=== PATIENT | male | born 1950 | race Caucasian/White ===

== ENCOUNTER → 2016-10-04 | Outpatient (CLI) | payer MEDICARE ==
[2016-10-04 08:18] LABS: CH 29.7; CHCM 31.8; HCT 45.9 % (39.0-53.0); HDW 2.21; HGB 14.9 gm/dL (13.0-17.5); MCH 30.5 pg (25.0-35.0); MCHC 32.4 g/dL (31.0-37.0); MCV 94.1 fL (80.0-100.0); Mean Platelet Volume 7.6; RBC 4.88 m/uL (4.30-5.90); RDW 13.5 % (11.5-15.5)
[2016-10-04 08:29] LABS: ALT 23 U/L (21-72); AST 17 U/L (17-59); Alkaline Phosphatase 79 U/L (38-126); Anion Gap 11 mmol/L; Blood Urea Nitrogen 23 mg/dL (9-20); Carbon Dioxide 24 mmol/L (22-30); Chloride 110 mmol/L (98-107); Glucose 137 mg/dL (74-99); Non-African American GFR(MDRD) >60 (>60 ml/min/1.73 sqM); Potassium 4.1 mmol/L (3.5-5.1); Sodium 145 mmol/L (137-145); Total Bilirubin 0.3 mg/dL (0.2-1.3); Total Protein 6.4 g/dL (6.3-8.2)
[2016-10-05 11:07] LABS: Protein C (Activity) 102 % (70 - 130)
[2016-10-05 11:56] LABS: Hexagonal Phase Neutralization Negative (Negative)
[2016-10-06 16:02] LABS: Mis test requested (Blood) PLASMINOGEN ACTIVITY
[2016-10-07 12:03] LABS: Free Protein S Antigen 107 % (57 - 171)
== END | disposition home or self-care (01) ==
LOC: LABWHC1 07:20
PROVIDERS: ATTEND Family Medicine
DX: I82.409 Acute embolism and thrombosis of unspecified deep veins of unspecified lower extremity (principal)
CPT/HCPCS: 36415; 80053; 81241; 81291; 83090; 85027; 85300; 85303; 85306; 85420; 85613; 85730; 86147

== ENCOUNTER 2016-11-02 10:33 | Emergency (ER) | payer MEDICARE ==
--- NOTE | 2016-11-02 10:58 | ED ---
General Adult HPI - General Chief complaint: Extremity Injury, Lower Stated complaint: right ankle pain Time Seen by Provider: 11/02/16 10:46 Source: patient, RN notes reviewed, old records reviewed Mode of arrival: ambulatory Limitations: no limitations - History of Present Illness Initial comments: This is a 66-year-old male to the ER for evaluation. Patient presents here today for evaluation of right leg pain right ankle pain. Patient has recent diagnosis of DVT on throttle. He did have trauma to right ankle pinning it against a chair. States pain is increased redness has increased since that event. - Related Data Home Medications Medication Instructions Recorded Confirmed Acetaminophen Tab [Tylenol Tab] 650 mg PO Q4H PRN 11/02/16 11/02/16 Aspirin EC [Ecotrin Low Dose] 81 mg PO DAILY 11/02/16 11/02/16 Atenolol [Tenormin] 50 mg PO DAILY 11/02/16 11/02/16 Atorvastatin [Lipitor] 40 mg PO DAILY 11/02/16 11/02/16 Levothyroxine Sodium [Synthroid] 50 mcg PO DAILY 11/02/16 11/02/16 OXcarbazepine [Oxtellar Xr] 600 mg PO DAILY 11/02/16 11/02/16 Rivaroxaban [Xarelto] 20 mg PO DAILY 11/02/16 11/02/16 Allergies Allergy/AdvReac Type Severity Reaction Status Date / Time No Known Allergies Allergy Verified 11/02/16 11:06 Review of Systems ROS Statement: Those systems with pertinent positive or pertinent negative responses have been documented in the HPI. ROS Other: All systems not noted in ROS Statement are negative. Past Medical History Past Medical History: CVA/TIA, Hyperlipidemia Additional Past Medical History / Comment(s): APS syndrome, stroke in 2007. History of Any Multi-Drug Resistant Organisms: None Reported Past Surgical History: Appendectomy, Tonsillectomy Past Psychological History: No Psychological Hx Reported Smoking Status: Current every day smoker Past Alcohol Use History: Rare Past Drug Use History: None Reported General Exam Limitations: no limitations General appearance: alert, in no apparent distress Head exam: Present: atraumatic, normocephalic, normal inspection Eye exam: Present: normal appearance, PERRL, EOMI. Absent: scleral icterus, conjunctival injection, periorbital swelling ENT exam: Present: normal exam, mucous membranes moist Neck exam: Present: normal inspection. Absent: tenderness, meningismus, lymphadenopathy Respiratory exam: Present: normal lung sounds bilaterally. Absent: respiratory distress, wheezes, rales, rhonchi, stridor Cardiovascular Exam: Present: regular rate, normal rhythm, normal heart sounds. Absent: systolic murmur, diastolic murmur, rubs, gallop, clicks GI/Abdominal exam: Present: soft, normal bowel sounds. Absent: distended, tenderness, guarding, rebound, rigid Extremities exam: Present: normal inspection, full ROM, normal capillary refill. Absent: tenderness, pedal edema, joint swelling, calf tenderness Back exam: Present: normal inspection Neurological exam: Present: alert, oriented X3, CN II-XII intact Psychiatric exam: Present: normal affect, normal mood Skin exam: Present: warm, dry, intact, normal color. Absent: rash Course Vital Signs 11/02/16 10:39 Temperature 97.6 F Pulse Rate 75 Respiratory 18 Rate Blood Pressure 172/82 O2 Sat by Pulse 96 Oximetry - Reevaluation(s) Reevaluation #1: 11/02/16 13:03 Discussed with patient at length disease process, negative ultrasound. Questions answered Medical Decision Making - Medical Decision Making 66 ER with right leg trauma, contusion to right ankle. Note DVT found in right leg, x-ray negative. Patient can be discharged home - Radiology Data Radiology results: report reviewed (RIGHT LOWER EXTREMITY NEGATIVE FOR DVT, X- RAY RIGHT ANKLE NEGATIVE FOR FRACTURE), image reviewed Disposition Clinical Impression: Contusion of ankle, right, Antiphospholipid syndrome Disposition: HOME SELF-CARE Condition: Good Instructions: Contusion in Adults (ED), Hypercoagulation (ED) Referrals: Natalie Poole DO [Primary Care Provider] - 1-2 days
--- NOTE | 2016-11-02 11:48 | XR ---
EXAMINATION TYPE: XR ankle complete RT DATE OF EXAM: 11/02/2016 CLINICAL HISTORY: Patient hit his right ankle on a chair one week ago with subsequent pain and swelli ng TECHNIQUE: Frontal, lateral and oblique images of the right ankle are obtained. COMPARISON: Right FINDINGS: There is no acute fracture/dislocation evident in the right ankle. The ankle mortise appe ars within normal limits. Soft tissue swelling over the lateral malleolus is evident. IMPRESSION: Soft tissue swelling over the lateral malleolus without fracture or dislocation of the ri ght ankle..
--- NOTE | 2016-11-02 12:15 | US ---
EXAMINATION TYPE: US venous doppler duplex LE RT DATE OF EXAM: 11/02/2016 12:10 PM COMPARISON: NONE CLINICAL HISTORY: Pain. Pt states right leg swelling/ currently on blood thinners, pt states prior DV T right leg SIDE PERFORMED: Right TECHNIQUE: The lower extremity deep venous system is examined utilizing real time linear array sonog babatunde with graded compression, doppler sonography and color-flow sonography. VESSELS IMAGED: External Iliac Vein (EIV) Common Femoral Vein Deep Femoral Vein Greater Saphenous Vein * Femoral Vein Popliteal Vein Small Saphenous Vein * Proximal Calf Veins (* superficial vessels) Right Leg: Negative for DVT Grayscale, color doppler, spectral doppler imaging performed of the deep veins of the lower extremiti es. There is normal flow, compressibility, vascular waveforms. IMPRESSION: No evidence of deep venous stenosis within the right lower extremity.
[2016-11-02 13:14] VITALS: BP 146/85; PULSE 70; RESP 16; TEMP 98.4
== END 2016-11-02 13:10 | disposition home or self-care (01) ==
LOC: EC 10:33
DX: S90.01XA Contusion of right ankle, initial encounter (principal); D68.61 Antiphospholipid syndrome; E78.5 Hyperlipidemia, unspecified; F17.200 Nicotine dependence, unspecified, uncomplicated; Z86.73 Personal history of transient ischemic attack (TIA), and cerebral infarction without residual deficits; Z79.01 Long term (current) use of anticoagulants; Z79.82 Long term (current) use of aspirin; Z79.899 Other long term (current) drug therapy; W22.03XA Walked into furniture, initial encounter
CPT/HCPCS: 99284

== ENCOUNTER → 2018-01-03 | Day surgery (SDC) | payer MEDICARE ==
[2017-12-29 11:48] VITALS: BMI 29.0
[~2018-01-03] MED LIST: GLUCAGON 1 MG/ML VIAL ONE; HYDROmorphone 1 MG/ML 1 ML SYRINGE IVP PRN; IOPAMIDOL-300 CONTRAST 30 ML VIAL (ORAL USE) PO PRN; LACTATED RINGERS 1,000 ML IV SCH; LIDOCAINE 1% 20 ML VIAL (10MG/ML) FOR IV START INTRADERMA ONE; PROPOFOL 10 MG/ML 20 ML VIAL IV ONE
[2018-01-03 09:39] VITALS: RESP 16; TEMP 97.8
--- NOTE | 2018-01-03 10:28 | P.GSHP ---
History of Present Illness H&P Date: 01/03/18 Chief Complaint: GI bleed This is a 67-year-old male who presents today for colonoscopy. Patient had issues with rectal bleeding. 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 History of Any Multi-Drug Resistant Organisms: None Reported Past Surgical History: Appendectomy, Tonsillectomy Additional Past Surgical History / Comment(s): Cataracts; Colonoscopy Past Anesthesia/Blood Transfusion Reactions: No Reported Reaction Smoking Status: Current every day smoker - Past Family History Mother Family Medical History: No Reported History Medications and Allergies Home Medications Medication Instructions Recorded Confirmed Type Aspirin EC [Ecotrin Low Dose] 81 mg PO DAILY 11/02/16 01/03/18 History Atenolol [Tenormin] 50 mg PO DAILY 11/02/16 01/03/18 History Atorvastatin [Lipitor] 40 mg PO DAILY 11/02/16 01/03/18 History Levothyroxine Sodium [Synthroid] 50 mcg PO DAILY 11/02/16 01/03/18 History Rivaroxaban [Xarelto] 20 mg PO DAILY 11/02/16 01/03/18 History Allergies Allergy/AdvReac Type Severity Reaction Status Date / Time No Known Allergies Allergy Verified 12/29/17 11:43 Surgical - Exam Vital Signs Temp Pulse Resp BP Pulse Ox 97.8 F 93 16 153/89 96 01/03/18 09:37 01/03/18 09:37 01/03/18 09:37 01/03/18 09:37 01/03/18 09:37 - General well developed, no distress - Eyes PERRL - ENT normal pinna - Neck no masses - Respiratory normal expansion - Cardiovascular Rhythm: regular - Abdomen Abdomen: soft, non tender Assessment and Plan Assessment: GI bleed, we'll perform colonoscopy.
[2018-01-03 11:35] VITALS: BP 135/79; PULSE 68
--- NOTE | 2018-01-03 14:40 | CT ---
EXAMINATION TYPE: CT abdomen pelvis w con DATE OF EXAM: 01/03/2018 COMPARISON: None HISTORY: Rectal bleeding. Failed colonoscopy. CT DLP: 1085.3 mGycm Automated exposure control for dose reduction was used. TECHNIQUE: Helical acquisition of images from the lung bases through the pelvis have been completed. CONTRAST: Performed with Oral Contrast and with IV Contrast, patient injected with 100 mL of Isovue 300. FINDINGS: There is some breathing motion on the exam. This may limit sensitivity. LUNG BASES: No significant abnormality is appreciated. AORTA: Infrarenal abdominal aortic aneurysm measures 4.4 cm, there is luminal plaque, mural calcific ation present. Common iliac arteries also show aneurysm on the right measuring 2.8 cm, 2.2 cm on the left.. LIVER/GB: No significant abnormality is appreciated. PANCREAS: No significant abnormality is seen. SPLEEN: No significant abnormality is seen. ADRENALS: No significant abnormality is seen. KIDNEYS: Cortical cysts are associated with both kidneys. Nonobstructive calculus present at the lowe r pole the left kidney measures approximately 7 8 mm. REPRODUCTIVE ORGANS: There are some punctate calcifications associated with the prostate BOWEL: Abnormal thickening in the sigmoid colon, there is diverticular change present. Difficult to exclude mucosal abnormality. The could be an underlying colitis. No evident bowel obstruction.. FREE AIR: No Free Air visible. ASCITES: None visible. PELVIC ADENOPATHY: None visualized. RETROPERITONEAL ADENOPATHY: No Retroperitoneal Adenopathy visible. URINARY BLADDER: No significant abnormality is seen. The bladder is contracted. OSSEOUS STRUCTURES: Bilateral spondylolysis at L5, anterolisthesis grade 2 is present of L5 on S1. IMPRESSION: DIVERTICULOSIS, CORRELATE TO EXCLUDE COLITIS, MUCOSAL ABNORMALITY. INFRARENAL ABDOMINAL AORTIC ANEURY SM. COMMON ILIAC ARTERY ANEURYSMS. NONOBSTRUCTIVE LEFT NEPHROLITHIASIS. ADDITIONAL FINDINGS ABOVE.
--- NOTE | 2018-02-18 12:59 | P.OP ---
Date of Procedure: 01/03/18 Preoperative Diagnosis: GI bleed Postoperative Diagnosis: Colonic polyp at 20 cm Procedure(s) Performed: Colonoscopy Anesthesia: MAC Surgeon: Ricardo Rodriguez Pathology: other (Colon polyp) Condition: stable Disposition: PACU Description of Procedure: The patient's placed on the endoscopy table in the lateral position. He received IV sedation. Digital rectal exam was performed which revealed no abnormalities. The prostate was symmetric without nodules. The flexible colonoscope was then placed patient anus and passed throughout the entire colon. The ileocecal valve was visualized. The cecum, ascending and transverse colon appeared normal. The descending colon appeared normal. In the sigmoid colon at the 20 cm marybeth there was a pedunculated polyp and this was removed with the snare. The scope was then brought back the rectum and this appeared normal. The scope was withdrawn for patient. There is no evidence of any GI bleed. It was thought that the previous rectal bleeding was due to the polyp.
== END ==
LOC: ORWHC2ENDO 08:34
PROVIDERS: ATTEND Surgery
DX: D12.5 Benign neoplasm of sigmoid colon (principal); K57.30 Diverticulosis of large intestine without perforation or abscess without bleeding; I71.4 Abdominal aortic aneurysm, without rupture; I72.3 Aneurysm of iliac artery; N20.0 Calculus of kidney; E78.5 Hyperlipidemia, unspecified; E07.9 Disorder of thyroid, unspecified; D68.61 Antiphospholipid syndrome; F17.200 Nicotine dependence, unspecified, uncomplicated; Z79.82 Long term (current) use of aspirin; Z79.890 Hormone replacement therapy; Z79.899 Other long term (current) drug therapy; Z79.01 Long term (current) use of anticoagulants; Z86.73 Personal history of transient ischemic attack (TIA), and cerebral infarction without residual deficits
CPT/HCPCS: 88305; 82565; 84520; 74177; 36415; 45385; J1610; J2704; Q9967

== ENCOUNTER 2019-08-08 09:56 | Emergency (ER) | payer MEDICARE ==
[2019-08-08 10:12] VITALS: TEMP 98.3
--- NOTE | 2019-08-08 10:31 | ED ---
General Adult HPI - General Chief complaint: Extremity Problem,Nontraumatic Stated complaint: Poss blood clot Time Seen by Provider: 08/08/19 10:19 Source: patient, RN notes reviewed, old records reviewed Mode of arrival: wheelchair Limitations: physical limitation - History of Present Illness Initial comments: 69-year-old male patient presents ED chief complaint of unilateral leg pain and swelling on the right side beginning on Monday. Patient doesn't history of prior DVT and was anticoagulated until to which she stopped himself because he began having blood in his urine and that resulted after he stopped xaralto number of years ago. Denies any chest pain or shortness of breath. Was seen by his primary care provider today who recommended come to hospital for an ultrasound. Systemic: Pt denies fatigue, fever/chills, rash. Pt denies weakness, night sweats, weight loss. Neuro: Pt denies headache, visual disturbances, syncope or pre-syncope. HEENT: Pt denies ocular discharge or irritation, otalgia, rhinorrhea, pharyngitis or notable lymphadenopathy. Cardiopulmonary: Pt denies chest pain, SOB, heart palpitations, dyspnea on exertion. Abdominal/GI: Pt denies abdominal pain, n/v/d. : Pt denies dysuria, burning w/ urination, frequency/urgency. Denies new onset urinary or bowel incontinence. MSK: Pt denies myalgia, loss of strength or function in extremities. Neuro: Pt denies new onset weakness, paresthesias. - Related Data Home Medications Medication Instructions Recorded Confirmed Aspirin EC [Ecotrin Low Dose] 81 mg PO DAILY 11/02/16 01/03/18 Atenolol [Tenormin] 50 mg PO DAILY 11/02/16 01/03/18 Atorvastatin [Lipitor] 40 mg PO DAILY 11/02/16 01/03/18 Levothyroxine Sodium [Synthroid] 50 mcg PO DAILY 11/02/16 01/03/18 Rivaroxaban [Xarelto] 20 mg PO DAILY 11/02/16 01/03/18 Previous Rx's Medication Instructions Recorded Apixaban [Eliquis] 5 mg PO DIRECTED #42 tab 08/08/19 Allergies Allergy/AdvReac Type Severity Reaction Status Date / Time No Known Allergies Allergy Verified 08/08/19 10:11 Review of Systems ROS Statement: Those systems with pertinent positive or pertinent negative responses have been documented in the HPI. ROS Other: All systems not noted in ROS Statement are negative. 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 History of Any Multi-Drug Resistant Organisms: None Reported Past Surgical History: Appendectomy, Tonsillectomy Additional Past Surgical History / Comment(s): Cataracts; Colonoscopy Past Anesthesia/Blood Transfusion Reactions: No Reported Reaction Past Psychological History: No Psychological Hx Reported Smoking Status: Current every day smoker Past Alcohol Use History: None Reported Past Drug Use History: None Reported - Past Family History Mother Family Medical History: No Reported History General Exam - General Exam Comments Initial Comments: Constitutional: NAD, AOX3, Pt has pleasant affect. HEENT: NC/AT, trachea midline, neck supple. External ears appear normal, without discharge. Mucous membranes moist. EOM intact. There is no scleral icterus. No pallor noted. Cardiopulmonary: RRR, no murmurs, rubs or gallops, no JVD noted. Lungs CTAB in anterior and posterior [place]. No peripheral edema. Abdominal exam: Abdomen soft and non-distended. Abdomen non-tender to palpation in all 4 quadrants. Bowel sounds active in LLQ. No hepatosplenomegaly. No e cchymosis Neuro: CN II-XII grossly intact. No nuchal rigidity. No raccon eyes, no cardona sign, no hemotympanum. No cervical spinal tenderness. MSK: Right-sided posterior calf tenderness, homans sign positive right-sided. Mild amount of posterior right hamstring tenderness as well as well as poplit eal. Posterior tibialis and radial pulse +2 bilaterally. Sensation intact in upper and lower extremities. Full active ROM in upper and lower extremities Limitations: physical limitation Course Vital Signs 08/08/19 10:09 Temperature 98.3 F Pulse Rate 68 Respiratory 18 Rate Blood Pressure 153/82 O2 Sat by Pulse 95 Oximetry Medical Decision Making - Medical Decision Making 69-year-old male patient presents ED chief complaint of unilateral leg pain and swelling on the right side beginning on Monday. Patient doesn't history of prior DVT and was anticoagulated until to which she stopped himself because he began having blood in his urine and that resulted after he stopped xaralto number of years ago. Denies any chest pain or shortness of breath. Was seen by his primary care provider today who recommended come to hospital for an ultrasound. Patient vital signs are stable. Physical exam displayed posterior right calf and posterior hamstring tenderness. No external skin changes. Neurovascularly intact. Laboratory investigations are non-impressive. Ultrasound of right lower extremity is positive for deep venous to boluses in the right external iliac vein with additional superficial venous thrombosis in the popliteal region. Patient will be initiated on eliquis. It was offered admission to hospital as I discussed with patient that this is a higher risk for DVT. Patient declines this. Patient to follow-up with his primary care prov ider was given strict return precautions. Case discussed with Dr. Osei. - Lab Data Result diagrams: 08/08/19 10:16 08/08/19 10:16 Lab Results 08/08/19 08/08/19 08/08/19 Range/Units 10:16 10:16 10:16 WBC 9.0 (3.8-10.6) k/uL RBC 5.21 (4.30-5.90) m/uL Hgb 15.3 (13.0-17.5) gm/dL Hct 48.7 (39.0-53.0) % MCV 93.5 (80.0-100.0) fL MCH 29.3 (25.0-35.0) pg MCHC 31.4 (31.0-37.0) g/dL RDW 13.2 (11.5-15.5) % Plt Count 179 (150-450) k/uL Neutrophils % 74 % Lymphocytes % 17 % Monocytes % 6 % Eosinophils % 1 % Basophils % 0 % Neutrophils # 6.7 (1.3-7.7) k/uL Lymphocytes # 1.6 (1.0-4.8) k/uL Monocytes # 0.5 (0-1.0) k/uL Eosinophils # 0.1 (0-0.7) k/uL Basophils # 0.0 (0-0.2) k/uL PT 9.9 (9.0-12.0) sec INR 0.9 (<1.2) APTT 24.4 (22.0-30.0) sec Sodium 137 (137-145) mmol/L Potassium 4.9 (3.5-5.1) mmol/L Chloride 107 (98-107) mmol/L Carbon Dioxide 23 (22-30) mmol/L Anion Gap 7 mmol/L BUN 22 H (9-20) mg/dL Creatinine 1.22 (0.66-1.25) mg/dL Est GFR (CKD-EPI)AfAm 70 (>60 ml/min/1.73 sqM) Est GFR (CKD-EPI)NonAf 60 (>60 ml/min/1.73 sqM) Glucose 134 H (74-99) mg/dL Calcium 9.2 (8.4-10.2) mg/dL Total Bilirubin 0.8 (0.2-1.3) mg/dL AST 22 (17-59) U/L ALT 15 (4-49) U/L Alkaline Phosphatase 75 (38-126) U/L Total Protein 7.1 (6.3-8.2) g/dL Albumin 4.3 (3.5-5.0) g/dL Disposition Clinical Impression: Deep vein thrombosis (DVT) of lower extremity Disposition: HOME SELF-CARE Condition: Stable Instructions (If sedation given, give patient instructions): Deep Vein Thrombosis (ED) Additional Instructions: Follow-up with primary care provider tomorrow. Take eliquis as directed. You were given your first dose in the emergency room, you are due for one more dose today. Your kidney function is slightly worse than your previous labs on file. Follow up with her primary care provider for this. Also your blood sugar is 134, also have this repeated by primary care provider. Return immediately to emergency room if symptoms worsen in any way. If any chest pain or shortness of breath develops return immediately to emergency room. Prescriptions: Apixaban [Eliquis] 5 mg PO DIRECTED #42 tab Is patient prescribed a controlled substance at d/c from ED?: No Referrals: Mauri Hayes MD [Primary Care Provider] - 1-2 days
[2019-08-08 11:15] LABS: Basophils % (A) 0 %; Eosinophils # (A) 0.1 k/uL (0-0.7); Eosinophils % (A) 1 %; HCT 48.7 % (39.0-53.0); HGB 15.3 gm/dL (13.0-17.5); Lymphocytes # (A) 1.6 k/uL (1.0-4.8); Lymphocytes % (A) 17 %; MCH 29.3 pg (25.0-35.0); MCHC 31.4 g/dL (31.0-37.0); MCV 93.5 fL (80.0-100.0); Monocytes # (A) 0.5 k/uL (0-1.0); Monocytes % (A) 6 %; Neutrophils # (A) 6.7 k/uL (1.3-7.7); Neutrophils % (A) 74 %; Platelet Count 179 k/uL (150-450); RBC 5.21 m/uL (4.30-5.90); RDW 13.2 % (11.5-15.5)
--- NOTE | 2019-08-08 11:21 | US ---
EXAMINATION TYPE: US venous doppler duplex LE RT DATE OF EXAM: 08/08/2019 11:09 AM COMPARISON: NONE CLINICAL HISTORY: unilateral leg pain. edema and pain right leg SIDE PERFORMED: right TECHNIQUE: The lower extremity deep venous system is examined utilizing real time linear array sonog babatunde with graded compression, doppler sonography and color-flow sonography. VESSELS IMAGED: External Iliac Vein (EIV) Common Femoral Vein Deep Femoral Vein Greater Saphenous Vein * Femoral Vein Popliteal Vein Small Saphenous Vein * Proximal Calf Veins (* superficial vessels) Right Leg: Positive for DVT, incomplete compression and no flow right EIV. Superficial thrombus note d right popliteal fossa IMPRESSION: Exam is positive for deep venous thrombosis in the right external iliac vein with additi onal superficial venous thrombosis in the popliteal region (deep popliteal vein is patent).
[2019-08-08 11:22] LABS: Albumin 4.3 g/dL (3.5-5.0); Calcium 9.2 mg/dL (8.4-10.2); Potassium 4.9 mmol/L (3.5-5.1); Total Bilirubin 0.8 mg/dL (0.2-1.3); Total Protein 7.1 g/dL (6.3-8.2)
[2019-08-08] MEDS ORDERED: APIXABAN 5 MG TAB PO STA (11:38)
[2019-08-08 11:50] LABS: INR 0.9 (<1.2); Partial Thromboplastin Time 24.4 sec (22.0-30.0); Prothrombin Time 9.9 sec (9.0-12.0)
[2019-08-08 12:28] VITALS: BP 135/79; PULSE 86; RESP 16
== END 2019-08-08 12:28 | disposition home or self-care (01) ==
LOC: EC 09:56
DX: I82.421 Acute embolism and thrombosis of right iliac vein (principal); I82.431 Acute embolism and thrombosis of right popliteal vein; E78.5 Hyperlipidemia, unspecified; E07.9 Disorder of thyroid, unspecified; F17.200 Nicotine dependence, unspecified, uncomplicated; Z79.01 Long term (current) use of anticoagulants; Z79.890 Hormone replacement therapy; Z79.82 Long term (current) use of aspirin; Z79.899 Other long term (current) drug therapy; Z86.73 Personal history of transient ischemic attack (TIA), and cerebral infarction without residual deficits
CPT/HCPCS: 36415; 80053; 85025; 85610; 85730; 99284

== ENCOUNTER → 2020-01-03 | Outpatient (CLI) | payer MEDICARE ==
[2020-01-03 11:05] LABS: HCT 48.5 % (39.0-53.0); HGB 15.7 gm/dL (13.0-17.5); MCH 31.1 pg (25.0-35.0); MCHC 32.3 g/dL (31.0-37.0); MCV 96.2 fL (80.0-100.0); Mean Platelet Volume 8.4; Platelet Count 177 k/uL (150-450); RBC 5.04 m/uL (4.30-5.90); RDW 13.2 % (11.5-15.5); WBC 7.5 k/uL (3.8-10.6)
--- NOTE | 2020-01-03 11:11 | XR ---
EXAMINATION TYPE: XR chest 2V DATE OF EXAM: 01/03/2020 COMPARISON: NONE HISTORY: Presurgical study. TECHNIQUE: Frontal and lateral views of the chest are obtained. FINDINGS: There is no focal air space opacity, pleural effusion, or pneumothorax seen. The cardiac silhouette size is within normal limits. The osseous structures are intact. IMPRESSION: No acute cardiopulmonary process.
[2020-01-03 11:29] LABS: INR 0.9 (<1.2); Partial Thromboplastin Time 25.9 sec (22.0-30.0); Prothrombin Time 9.7 sec (9.0-12.0)
[2020-01-03 11:40] LABS: Appearance,Urine Clear (Clear); Bilirubin,Urine Negative (Negative); Blood,Urine Moderate (Negative); Color,Urine Yellow; Glucose,Urine (UA) Negative (Negative); Ketones,Urine Negative (Negative); Leukocyte Esterase,Urine Negative (Negative); Mucus,Urine Rare /hpf; Nitrite,Urine Negative (Negative); Protein,Urine Trace (Negative); RBC,Urine 6 /hpf (0-5); Specific Gravity,Urine 1.024 (1.001-1.035); Urobilinogen,Urine <2.0 mg/dL (<2.0); WBC,Urine 1 /hpf (0-5)
[2020-01-03 15:44] LABS: Anion Gap 10.6 mmol/L (4.00-12.00); Calcium 9.4 mg/dL (8.7-10.3); Carbon Dioxide 20.4 mmol/L (21.6-31.8); Non-African American GFR(CKD) 50.9 (60.0-200.0); Potassium 4.7 mmol/L (3.5-5.5)
== END | disposition home or self-care (01) ==
LOC: LABWHC1 10:12
PROVIDERS: ATTEND Surgery Vascular Surgery
DX: I65.23 Occlusion and stenosis of bilateral carotid arteries (principal); Z01.818 Encounter for other preprocedural examination; Z20.828 Contact with and (suspected) exposure to other viral communicable diseases
CPT/HCPCS: 80048; 85027; 85610; 85730; 81001; 87086; 71046; 93005; 36415; U0003

== ENCOUNTER 2020-01-21 12:05 | Emergency (ER) | payer MEDICARE ==
[2020-01-21] MEDS ORDERED: atenoloL 25 MG TAB PO STA ×2 (12:29→15:10)
--- NOTE | 2020-01-21 12:36 | ED ---
General Adult HPI - General Chief complaint: Recheck/Abnormal Lab/Rx Stated complaint: High Blood Pressure Time Seen by Provider: 01/21/20 12:17 Source: patient, family, RN notes reviewed Mode of arrival: wheelchair Limitations: no limitations - History of Present Illness Initial comments: Patient is a pleasant 70-year-old male presenting to the emergency Department with reported hypertension. Patient states he feels fine and has no complaints. Patient did take his atenolol this morning. Patient did have carotid endarterectomy done 1 week ago. Patient has no complaints regarding that. patient has had some mild headaches over the past few days, minimal at this time. No weakness or confusion or speech problems. Blood pressure from primary care physician was 212 systolic. Unclear diastolic.patient does not normally check his blood pressure. Patient does have history of chronic hypertension. - Related Data Home Medications Medication Instructions Recorded Confirmed Atorvastatin [Lipitor] 40 mg PO DAILY 11/02/16 01/21/20 Levothyroxine Sodium [Synthroid] 50 mcg PO DAILY 11/02/16 01/21/20 atenoloL [Tenormin] 50 mg PO DAILY 11/02/16 01/21/20 Apixaban [Eliquis] 5 mg PO BID 01/21/20 01/21/20 Allergies Allergy/AdvReac Type Severity Reaction Status Date / Time No Known Allergies Allergy Verified 01/21/20 13:18 Review of Systems ROS Statement: Those systems with pertinent positive or pertinent negative responses have been documented in the HPI. ROS Other: All systems not noted in ROS Statement are negative. Constitutional: Denies: fever Eyes: Denies: eye pain ENT: Denies: ear pain Respiratory: Denies: cough, dyspnea Cardiovascular: Denies: chest pain Endocrine: Denies: fatigue Gastrointestinal: Denies: abdominal pain Genitourinary: Denies: dysuria Musculoskeletal: Denies: back pain Skin: Denies: rash Neurological: Reports: as per HPI. 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 History of Any Multi-Drug Resistant Organisms: None Reported Past Surgical History: Appendectomy, Tonsillectomy Additional Past Surgical History / Comment(s): Cataracts; Colonoscopy Past Anesthesia/Blood Transfusion Reactions: No Reported Reaction Past Psychological History: No Psychological Hx Reported Smoking Status: Current every day smoker Past Alcohol Use History: None Reported Past Drug Use History: None Reported - Past Family History Mother Family Medical History: No Reported History General Exam Limitations: no limitations General appearance: alert, in no apparent distress Head exam: Present: normocephalic Eye exam: Present: normal appearance, PERRL, EOMI. Absent: nystagmus ENT exam: Present: normal oropharynx Neck exam: Present: other (right anterior neck with incision consistent with recent carotid endarterectomy, clean and dry and intact.) Respiratory exam: Present: normal lung sounds bilaterally Cardiovascular Exam: Present: regular rate, normal rhythm Expanded Peripheral pulses: 2+: Radial (R), Radial (L), Posterior Tibialis (R), Posterior Tibialis (L) GI/Abdominal exam: Present: soft. Absent: tenderness Extremities exam: Present: normal inspection Neurological exam: Present: alert, CN II-XII intact. Absent: motor sensory deficit Expanded Neurological exam: Present: protecting the airway Patient oriented to: Present: person, place, time Speech: Present: fluid speech Cranial nerves: EOM's Intact: Normal, Facial Sensation: Normal Sensory exam: Upper Extremity Light Touch: Normal, Lower Extremity Light Touch: Normal Motor strength exam: RUE: 5, LUE: 5, RLE: 5, LLE: 5 Eye Response: (4) open spontaneously Motor Response: (6) obeys commands Verbal Response: (5) oriented Psychiatric exam: Present: normal affect, normal mood Skin exam: Present: normal color Course Vital Signs 01/21/20 01/21/20 01/21/20 12:12 12:48 13:15 Temperature 98.8 F Pulse Rate 70 64 Respiratory 18 18 Rate Blood Pressure 193/96 174/89 192/97 O2 Sat by Pulse 96 97 Oximetry 01/21/20 01/21/20 13:30 13:59 Temperature Pulse Rate 62 Respiratory 18 Rate Blood Pressure 152/77 143/83 O2 Sat by Pulse 95 Oximetry EKG Findings - EKG Comments: EKG Findings:: sinus rhythm at 64. First-degree AV block ME of 258. QRS 94. QT 410. QTc 422. Normal axis. Normal QRS. No acute ST change. Medical Decision Making - Medical Decision Making patient reevaluated and resting comfortably in bed. Blood pressure improved. Patient and family updated on results and need for follow-up. - Lab Data Result diagrams: 01/21/20 12:56 01/21/20 12:56 Lab Results 01/21/20 01/21/20 01/21/20 Range/Units 12:56 12:56 12:56 WBC 7.8 (3.8-10.6) k/uL RBC 5.01 (4.30-5.90) m/uL Hgb 15.2 (13.0-17.5) gm/dL Hct 47.2 (39.0-53.0) % MCV 94.3 (80.0-100.0) fL MCH 30.3 (25.0-35.0) pg MCHC 32.2 (31.0-37.0) g/dL RDW 13.3 (11.5-15.5) % Plt Count 203 (150-450) k/uL MPV 7.8 Neutrophils % 66 % Lymphocytes % 26 % Monocytes % 4 % Eosinophils % 1 % Basophils % 1 % Neutrophils # 5.1 (1.3-7.7) k/uL Lymphocytes # 2.0 (1.0-4.8) k/uL Monocytes # 0.3 (0-1.0) k/uL Eosinophils # 0.1 (0-0.7) k/uL Basophils # 0.1 (0-0.2) k/uL Sodium 141 (137-145) mmol/L Potassium 4.6 (3.5-5.1) mmol/L Chloride 107 (98-107) mmol/L Carbon Dioxide 28 (22-30) mmol/L Anion Gap 6 mmol/L BUN 17 (9-20) mg/dL Creatinine 1.10 (0.66-1.25) mg/dL Est GFR (CKD-EPI)AfAm 78 (>60 ml/min/1.73 sqM) Est GFR (CKD-EPI)NonAf 68 (>60 ml/min/1.73 sqM) Glucose 119 H (74-99) mg/dL Calcium 9.4 (8.4-10.2) mg/dL Total Bilirubin 0.5 (0.2-1.3) mg/dL AST 33 (17-59) U/L ALT 36 (4-49) U/L Alkaline Phosphatase 75 (38-126) U/L Total Protein 6.8 (6.3-8.2) g/dL Albumin 4.1 (3.5-5.0) g/dL Urine Color Light Yellow Urine Appearance Clear (Clear) Urine pH 7.0 (5.0-8.0) Ur Specific [place] 1.013 (1.001-1.035) Urine Protein Negative (Negative) Urine Glucose (UA) Negative (Negative) Urine Ketones Negative (Negative) Urine Blood Trace H (Negative) Urine Nitrite Negative (Negative) Urine Bilirubin Negative (Negative) Urine Urobilinogen <2.0 (<2.0) mg/dL Ur Leukocyte Esterase Negative (Negative) Urine RBC 5 (0-5) /hpf Urine WBC <1 (0-5) /hpf Urine Mucus Rare H (None) /hpf - Radiology Data Radiology results: image reviewed (chest x-ray shows no acute process) Disposition Clinical Impression: Hypertension Disposition: HOME SELF-CARE Condition: Stable Instructions (If sedation given, give patient instructions): Hypertension (ED) Additional Instructions: please follow-up with primary care physician in the next day or 2 for recheck. Obtain a blood pressure monitor and check blood pressure frequently. If blood pressure is high, you may take an extra one half pill of your atenolol daily. Return for uncontrolled blood pressure, weakness or chest pain, worsening symptoms or other concerns. Is patient prescribed a controlled substance at d/c from ED?: No Referrals: Mauri Hayes MD [Primary Care Provider] - 1-2 days Time of Disposition: 14:32
[2020-01-21 13:17] LABS: Basophils # (A) 0.1 k/uL (0-0.2); Basophils % (A) 1 %; Eosinophils # (A) 0.1 k/uL (0-0.7); Eosinophils % (A) 1 %; HCT 47.2 % (39.0-53.0); HGB 15.2 gm/dL (13.0-17.5); Lymphocytes % (A) 26 %; MCH 30.3 pg (25.0-35.0); MCHC 32.2 g/dL (31.0-37.0); MCV 94.3 fL (80.0-100.0); Mean Platelet Volume 7.8; Monocytes # (A) 0.3 k/uL (0-1.0); Monocytes % (A) 4 %; Neutrophils # (A) 5.1 k/uL (1.3-7.7); Neutrophils % (A) 66 %; Platelet Count 203 k/uL (150-450); RBC 5.01 m/uL (4.30-5.90); RDW 13.3 % (11.5-15.5); WBC 7.8 k/uL (3.8-10.6)
[2020-01-21 13:33] LABS: Albumin 4.1 g/dL (3.5-5.0); Calcium 9.4 mg/dL (8.4-10.2); Potassium 4.6 mmol/L (3.5-5.1); Total Bilirubin 0.5 mg/dL (0.2-1.3); Total Protein 6.8 g/dL (6.3-8.2)
[2020-01-21 13:40] LABS: Appearance,Urine Clear (Clear); Bilirubin,Urine Negative (Negative); Blood,Urine Trace (Negative); Color,Urine Light Yellow; Glucose,Urine (UA) Negative (Negative); Ketones,Urine Negative (Negative); Leukocyte Esterase,Urine Negative (Negative); Mucus,Urine Rare /hpf; Nitrite,Urine Negative (Negative); Protein,Urine Negative (Negative); RBC,Urine 5 /hpf (0-5); Specific Gravity,Urine 1.013 (1.001-1.035); Urobilinogen,Urine <2.0 mg/dL (<2.0); WBC,Urine <1 /hpf (0-5)
--- NOTE | 2020-01-21 13:49 | XR ---
EXAMINATION TYPE: XR chest 2V DATE OF EXAM: 01/21/2020 COMPARISON: 01/03/2020 INDICATION: Hypertension TECHNIQUE: Frontal and lateral views of the chest are obtained. FINDINGS: The heart size is normal. The pulmonary vasculature is normal. The lungs are clear. IMPRESSION: 1. No acute pulmonary process.
[2020-01-21 15:14] VITALS: TEMP 98.3
[2020-01-21 15:17] VITALS: RESP 18
[2020-01-21 15:49] VITALS: BP 169/92; PULSE 61
== END 2020-01-21 15:49 | disposition home or self-care (01) ==
LOC: EC 12:05
DX: I10 Essential (primary) hypertension (principal); E07.9 Disorder of thyroid, unspecified; E78.5 Hyperlipidemia, unspecified; F17.200 Nicotine dependence, unspecified, uncomplicated; Z79.899 Other long term (current) drug therapy; Z79.890 Hormone replacement therapy; Z79.01 Long term (current) use of anticoagulants; Z86.73 Personal history of transient ischemic attack (TIA), and cerebral infarction without residual deficits
CPT/HCPCS: 36415; 71046; 80053; 81001; 85025; 93005; 99284

== ENCOUNTER 2020-01-21 17:02 | Observation (INO) | payer MEDICARE ==
[2020-01-21 17:10] LABS: Glucose,Whole Blood 146 mg/dL (75-99)
--- NOTE | 2020-01-21 17:11 | ED ---
General Adult HPI - General Stated complaint: Unresponsive Time Seen by Provider: 01/21/20 17:07 Source: patient, EMS, RN notes reviewed Mode of arrival: EMS Limitations: no limitations - History of Present Illness Initial comments: Patient is a pleasant 70-year-old male presenting to the emergency department following a syncopal episode. Patient was in the emergency department earlier today with high blood pressure. Patient reportedly was found in his car unresponsive. No seizure activity witnessed. EMS states patient was unresponsive however has improved some. EMS states patient is significantly improved since arrival here in emergency department. Patient states he feels fine at this time and has no complaints. No headache or chest pain or dyspnea. No weakness. Patient denies confusion.patient did have a right-sided carotid endarterectomy one week ago. - Related Data Home Medications Medication Instructions Recorded Confirmed Atorvastatin [Lipitor] 40 mg PO DAILY 11/02/16 01/21/20 Levothyroxine Sodium [Synthroid] 50 mcg PO DAILY 11/02/16 01/21/20 atenoloL [Tenormin] 50 mg PO DAILY 11/02/16 01/21/20 Apixaban [Eliquis] 5 mg PO BID 01/21/20 01/21/20 Allergies Allergy/AdvReac Type Severity Reaction Status Date / Time No Known Allergies Allergy Verified 01/21/20 18:23 Review of Systems ROS Statement: Those systems with pertinent positive or pertinent negative responses have been documented in the HPI. ROS Other: All systems not noted in ROS Statement are negative. 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 History of Any Multi-Drug Resistant Organisms: None Reported Past Surgical History: Appendectomy, Tonsillectomy Additional Past Surgical History / Comment(s): Cataracts; Colonoscopy Past Anesthesia/Blood Transfusion Reactions: No Reported Reaction Past Psychological History: No Psychological Hx Reported Smoking Status: Current every day smoker Past Alcohol Use History: None Reported Past Drug Use History: None Reported - Past Family History Mother Family Medical History: No Reported History General Exam Limitations: no limitations General appearance: alert Head exam: Present: atraumatic, normocephalic Eye exam: Present: normal appearance, PERRL, EOMI. Absent: nystagmus ENT exam: Present: normal oropharynx Neck exam: Present: other (right-sided neck incision clean and dry and intact) Respiratory exam: Present: normal lung sounds bilaterally Cardiovascular Exam: Present: regular rate, normal rhythm GI/Abdominal exam: Present: soft. Absent: tenderness Extremities exam: Present: normal inspection Neurological exam: Present: alert, oriented X3, CN II-XII intact. Absent: motor sensory deficit Expanded Neurological exam: Present: protecting the airway Patient oriented to: Present: person, place, time Speech: Present: fluid speech Cranial nerves: EOM's Intact: Normal, Facial Sensation: Normal Sensory exam: Upper Extremity Light Touch: Normal, Lower Extremity Light Touch: Normal Motor strength exam: RUE: 5, LUE: 5, RLE: 5, LLE: 5 Eye Response: (4) open spontaneously Motor Response: (6) obeys commands Verbal Response: (5) oriented Psychiatric exam: Present: normal affect, normal mood Skin exam: Present: normal color Course Vital Signs 01/21/20 01/21/20 01/21/20 17:04 17:25 17:30 Temperature 97.6 F Pulse Rate 74 Respiratory 18 16 Rate Blood Pressure 94/56 94/54 94/54 O2 Sat by Pulse Oximetry 01/21/20 01/21/20 18:08 19:10 Temperature Pulse Rate 67 70 Respiratory 18 18 Rate Blood Pressure 130/64 151/80 O2 Sat by Pulse 92 L 97 Oximetry - Reevaluation(s) Reevaluation #1: 01/21/20 17:43 further information was obtained from the states patient was confused prior to becoming unresponsive. Case was discussed with Dr. ray who would like patient to have CTA done. He is aware the patient was not activated. 01/21/20 18:24 patient was reevaluated and resting comfortably in bed, still symptom-free. Patient states his CTA was done at [facility] in [place] by Dr. العراقي. EKG Findings - EKG Comments: EKG Findings:: sinus rhythm at 73. First-degree AV block with [place] of 268. QRS 92. QT 424. QTC 467. Normal axis. Normal QRS. Nonspecific ST-T. Medical Decision Making - Medical Decision Making patient reevaluated several times. Patient and family updated on results and plan. Case was discussed in detail with Dr. Esquivel, who will admit covering for Dr. Hayes. - Lab Data Result diagrams: 01/21/20 17:16 01/21/20 17:16 Lab Results 01/21/20 01/21/20 01/21/20 Range/Units 17:09 17:16 17:16 WBC 9.1 (3.8-10.6) k/uL RBC 4.64 (4.30-5.90) m/uL Hgb 14.3 (13.0-17.5) gm/dL Hct 44.8 (39.0-53.0) % MCV 96.6 (80.0-100.0) fL MCH 30.9 (25.0-35.0) pg MCHC 31.9 (31.0-37.0) g/dL RDW 13.2 (11.5-15.5) % Plt Count 218 (150-450) k/uL MPV 8.1 Neutrophils % 60 % Lymphocytes % 32 % Monocytes % 4 % Eosinophils % 1 % Basophils % 1 % Neutrophils # 5.5 (1.3-7.7) k/uL Lymphocytes # 3.0 (1.0-4.8) k/uL Monocytes # 0.4 (0-1.0) k/uL Eosinophils # 0.1 (0-0.7) k/uL Basophils # 0.1 (0-0.2) k/uL PT 9.9 (9.0-12.0) sec INR 0.9 (<1.2) APTT 22.1 (22.0-30.0) sec Sodium (137-145) mmol/L Potassium (3.5-5.1) mmol/L Chloride (98-107) mmol/L Carbon Dioxide (22-30) mmol/L Anion Gap mmol/L BUN (9-20) mg/dL Creatinine (0.66-1.25) mg/dL Est GFR (CKD-EPI)AfAm (>60 ml/min/1.73 sqM) Est GFR (CKD-EPI)NonAf (>60 ml/min/1.73 sqM) Glucose (74-99) mg/dL POC Glucose (mg/dL) 146 H (75-99) mg/dL POC Glu Head Charger ID Peyton Dejesus Calcium (8.4-10.2) mg/dL Magnesium (1.6-2.3) mg/dL Total Bilirubin (0.2-1.3) mg/dL AST (17-59) U/L ALT (4-49) U/L Alkaline Phosphatase (38-126) U/L Troponin I (0.000-0.034) ng/mL Total Protein (6.3-8.2) g/dL Albumin (3.5-5.0) g/dL 01/21/20 01/21/20 Range/Units 17:16 17:16 WBC (3.8-10.6) k/uL RBC (4.30-5.90) m/uL Hgb (13.0-17.5) gm/dL Hct (39.0-53.0) % MCV (80.0-100.0) fL MCH (25.0-35.0) pg MCHC (31.0-37.0) g/dL RDW (11.5-15.5) % Plt Count (150-450) k/uL MPV Neutrophils % % Lymphocytes % % Monocytes % % Eosinophils % % Basophils % % Neutrophils # (1.3-7.7) k/uL Lymphocytes # (1.0-4.8) k/uL Monocytes # (0-1.0) k/uL Eosinophils # (0-0.7) k/uL Basophils # (0-0.2) k/uL PT (9.0-12.0) sec INR (<1.2) APTT (22.0-30.0) sec Sodium 139 (137-145) mmol/L Potassium 4.6 (3.5-5.1) mmol/L Chloride 106 (98-107) mmol/L Carbon Dioxide 16 L (22-30) mmol/L Anion Gap 17 mmol/L BUN 17 (9-20) mg/dL Creatinine 1.42 H (0.66-1.25) mg/dL Est GFR (CKD-EPI)AfAm 58 (>60 ml/min/1.73 sqM) Est GFR (CKD-EPI)NonAf 50 (>60 ml/min/1.73 sqM) Glucose 159 H (74-99) mg/dL POC Glucose (mg/dL) (75-99) mg/dL POC Glu Head Charger ID Calcium 9.3 (8.4-10.2) mg/dL Magnesium 2.1 (1.6-2.3) mg/dL Total Bilirubin 0.6 (0.2-1.3) mg/dL AST 35 (17-59) U/L ALT 37 (4-49) U/L Alkaline Phosphatase 68 (38-126) U/L Troponin I <0.012 (0.000-0.034) ng/mL Total Protein 6.6 (6.3-8.2) g/dL Albumin 4.1 (3.5-5.0) g/dL - Radiology Data Radiology results: report reviewed (CT angios shows no acute abnormality. Mode rate left proximal ICA stenosis. Computed tomography scan of the brain shows no acute abnormality.), image reviewed (chest x-ray shows no acute process) Disposition Clinical Impression: Syncope Disposition: ADMITTED IP TO THIS HOSP Is patient prescribed a controlled substance at d/c from ED?: No Referrals: Mauri Hayes MD [Primary Care Provider] - 1-2 days Decision Time: 20:09
[2020-01-21] MEDS ORDERED: SODIUM CHLORIDE 0.9% 500 ML 500 ML IV STA (17:17)
[2020-01-21 17:30] LABS: Basophils # (A) 0.1 k/uL (0-0.2); Basophils % (A) 1 %; Eosinophils # (A) 0.1 k/uL (0-0.7); Eosinophils % (A) 1 %; HCT 44.8 % (39.0-53.0); HGB 14.3 gm/dL (13.0-17.5); Lymphocytes % (A) 32 %; MCH 30.9 pg (25.0-35.0); MCHC 31.9 g/dL (31.0-37.0); MCV 96.6 fL (80.0-100.0); Mean Platelet Volume 8.1; Monocytes # (A) 0.4 k/uL (0-1.0); Monocytes % (A) 4 %; Neutrophils # (A) 5.5 k/uL (1.3-7.7); Neutrophils % (A) 60 %; Platelet Count 218 k/uL (150-450); RBC 4.64 m/uL (4.30-5.90); RDW 13.2 % (11.5-15.5); WBC 9.1 k/uL (3.8-10.6)
[2020-01-21 17:40] LABS: Albumin 4.1 g/dL (3.5-5.0); Calcium 9.3 mg/dL (8.4-10.2); Magnesium 2.1 mg/dL (1.6-2.3); Potassium 4.6 mmol/L (3.5-5.1); Total Bilirubin 0.6 mg/dL (0.2-1.3); Total Protein 6.6 g/dL (6.3-8.2)
--- NOTE | 2020-01-21 17:47 | CT ---
EXAMINATION TYPE: CT brain wo con DATE OF EXAM: 01/21/2020 COMPARISON: None available. HISTORY: Syncope CT DLP: 1157.4 mGycm Automated exposure control for dose reduction was used. FINDINGS: There is no acute intracranial hemorrhage, mass effect, midline shift or hydrocephalus. The rock-whit e matter is grossly maintained. The paranasal sinuses and mastoid air cells are adequately aerated. N o calvarial fracture. IMPRESSION: NO ACUTE INTRACRANIAL ABNORMALITY.
[2020-01-21 17:53] LABS: INR 0.9 (<1.2); Partial Thromboplastin Time 22.1 sec (22.0-30.0); Prothrombin Time 9.9 sec (9.0-12.0)
--- NOTE | 2020-01-21 18:17 | XR ---
EXAMINATION TYPE: XR chest 2V DATE OF EXAM: 01/21/2020 COMPARISON: Earlier same day. HISTORY: Unresponsive. TECHNIQUE: Frontal and lateral views of the chest are obtained. FINDINGS: There is no focal air space opacity, pleural effusion, or pneumothorax seen. The cardiac silhouette size is within normal limits. The osseous structures are intact. IMPRESSION: No acute cardiopulmonary process.
--- NOTE | 2020-01-21 19:46 | CT ---
EXAMINATION TYPE: CT angio head neck DATE OF EXAM: 01/21/2020 HISTORY: cva COMPARISON: Same-day head CT. CT DLP: 474.5 mGycm. Automated Exposure Control for Dose Reduction was Utilized. TECHNIQUE: CTA scan of the head and neck is performed with IV Contrast, patient injected with 65cc m L of Isovue 370, axial images are obtained, coronal and sagittal reformatted images are reviewed. Thr ee-D reconstructed images are created on an independent workstation and reviewed. FINDINGS: Carotid/Vascular Structures: Moderate stenosis of the left proximal ICA. Otherwise no significant ivan nosis of the bilateral cervical carotid or vertebral arteries. Other: The JUAN, MCA, [employer]ATIONAL TRAINING DIRECTOR, [place], basilar and intracranial vertebral and carotid arteries a re grossly patent without significant stenosis or aneurysm. IMPRESSION: No acute abnormality is seen. Moderate left proximal ICA stenosis.
[2020-01-21] MEDS ORDERED: NALOXONE 0.4 MG/ML 1 ML VIAL IV PRN (20:10)
[2020-01-21] MEDS: SODIUM CHLORIDE 0.9% 1,000 ML IV STA (20:29)
[2020-01-21] MEDS: APIXABAN 5 MG TAB PO SCH (21:41)
[2020-01-21 22:47] LABS: Appearance,Urine Clear (Clear); Bilirubin,Urine Negative (Negative); Blood,Urine Small (Negative); Color,Urine Light Yellow; Glucose,Urine (UA) Negative (Negative); Ketones,Urine Negative (Negative); Leukocyte Esterase,Urine Negative (Negative); Mucus,Urine Rare /hpf; Nitrite,Urine Negative (Negative); Protein,Urine Negative (Negative); RBC,Urine 7 /hpf (0-5); Specific Gravity,Urine 1.027 (1.001-1.035); Urobilinogen,Urine <2.0 mg/dL (<2.0); WBC,Urine 1 /hpf (0-5)
[2020-01-22] MEDS: LEVOTHYROXINE 50 MCG TAB PO SCH (06:21)
[2020-01-22 07:26] LABS: Basophils # (A) 0.1 k/uL (0-0.2); Basophils % (A) 1 %; Eosinophils # (A) 0.1 k/uL (0-0.7); Eosinophils % (A) 2 %; HGB 13.9 gm/dL (13.0-17.5); Lymphocytes # (A) 1.8 k/uL (1.0-4.8); Lymphocytes % (A) 22 %; MCH 31.6 pg (25.0-35.0); MCHC 33.2 g/dL (31.0-37.0); Mean Platelet Volume 7.8; Monocytes # (A) 0.5 k/uL (0-1.0); Monocytes % (A) 6 %; Neutrophils # (A) 5.7 k/uL (1.3-7.7); Neutrophils % (A) 69 %; Platelet Count 180 k/uL (150-450); RBC 4.42 m/uL (4.30-5.90); RDW 13.4 % (11.5-15.5); WBC 8.3 k/uL (3.8-10.6)
[2020-01-22 07:36] LABS: Albumin 3.7 g/dL (3.5-5.0); Calcium 8.9 mg/dL (8.4-10.2); Potassium 4.4 mmol/L (3.5-5.1); Total Bilirubin 0.8 mg/dL (0.2-1.3); Total Protein 6.2 g/dL (6.3-8.2)
[2020-01-22] MEDS: amLODIPine 5 MG TAB PO SCH (08:39)
[2020-01-22] MEDS: APIXABAN 5 MG TAB PO SCH ×2 (08:39→20:55)
[2020-01-22] MEDS: ATORVASTATIN 40 MG TAB PO SCH (08:39)
[2020-01-22] MEDS: SODIUM CHLORIDE 0.9% 1,000 ML IV STA (08:51)
[2020-01-22] MEDS ORDERED: atenoloL 50 MG TAB PO SCH (09:00)
--- NOTE | 2020-01-22 09:46 | P.CRDCN ---
History of Present Illness Consult date: 01/22/20 Consult reason: sycope Chief complaint: Syncope History of present illness: This is a pleasant 70-year-old gentleman with documented history of hypertension, nicotine dependence, history of a DVT in August of this year for which the patient takes Eliquis, PVD, patient recently underwent right carotid endarterectomy at [facility]. He presented to the hospital following a syncopal episode. According to the patient, he went to a follow-up visit, it was noted that his blood pressure was in the 200 systolic range, he went to the emergency room to be evaluated, blood pressure there was 193/96. Patient did take his atenolol in the morning and was advised to grain picker a blood pressure cuff. He states that he was in the parking lot of [employer], felt extremely dizzy as he was getting out of the car, sat back down and then passed out. On EMS arrival, patient was initially unresponsive. His blood pressure on arrival here was 94/50. Brain CT did not reveal any acute abnormality, chest x-ray did not reveal any acute process CT angiogram did not reveal any acute or significant stenosis, EKG showed a normal sinus rhythm with a first-degree AV block. Patient did see Dr. Broussard as a new patient in the office prior to his right carotid endarterectomy, he underwent a Lexiscan stress test which was reported to be okay and this was in December. Blood pressure this morning 135/70, heart rate in the 60s, respirations 18, afebrile, 94% on room air. White blood cell count 8.3, hemoglobin 13.9, platelet count 180. Sodium 140, potassium 4.4, BUN 20, creatinine 1.2 troponins negative 3. Patient's home medications included Eliquis 5 mg twice a day, atenolol 50 mg daily, Lipitor 40 mg daily, and Synthroid. At the time of my examination this morning, patient feels well, denies any dizziness or lightheadedness, no palpitations. 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 Right sided Carotid Endoarterectomy Past Anesthesia/Blood Transfusion Reactions: No Reported Reaction Past Psychological History: No Psychological Hx Reported Smoking Status: Current every day smoker Past Alcohol Use History: None Reported Additional Past Alcohol Use History / Comment(s): has smoked for about 40 years 3/4 ppd Past Drug Use History: None Reported - Past Family History Mother Family Medical History: No Reported History Medications and Allergies Home Medications Medication Instructions Recorded Confirmed Type Atorvastatin [Lipitor] 40 mg PO DAILY 11/02/16 01/21/20 History Levothyroxine Sodium [Synthroid] 50 mcg PO DAILY 11/02/16 01/21/20 History atenoloL [Tenormin] 50 mg PO DAILY 11/02/16 01/21/20 History Apixaban [Eliquis] 5 mg PO BID 01/21/20 01/21/20 History Allergies Allergy/AdvReac Type Severity Reaction Status Date / Time No Known Allergies Allergy Verified 01/21/20 18:23 Physical Exam Vitals: Vital Signs Temp Pulse Pulse Pulse Pulse Pulse Resp 01/22/20 08:12 97.9 F 68 77 70 20 01/22/20 02:34 18 01/22/20 02:32 97.9 F 68 18 01/21/20 22:57 80 85 78 01/21/20 21:20 01/21/20 21:06 97.9 F 74 16 01/21/20 19:10 70 18 01/21/20 18:08 67 18 01/21/20 17:30 16 01/21/20 17:25 01/21/20 17:04 97.6 F 74 18 BP BP BP BP BP Pulse Ox 01/22/20 08:12 156/76 147/73 170/68 93 L 01/22/20 02:34 01/22/20 02:32 135/78 94 L 01/21/20 22:57 146/81 136/86 163/74 01/21/20 21:20 174/77 01/21/20 21:06 180/84 97 01/21/20 19:10 151/80 97 01/21/20 18:08 130/64 92 L 01/21/20 17:30 94/54 01/21/20 17:25 94/54 01/21/20 17:04 94/56 Intake and Output 01/21/20 01/22/20 01/22/20 22:59 06:59 14:59 Intake Total 240 Output Total 500 Balance -500 240 Intake: Oral 240 Output: Urine 500 Other: Voiding Method Toilet Toilet # Voids 1 Weight 85.729 kg PHYSICAL EXAMINATION: GENERAL: 70-year-old gentleman in no acute distress at the time of my examination HEENT: Head is atraumatic, normocephalic. Pupils equal, round. Sclera anicteric. Conjunctiva are clear. Mucous membranes of the mouth are moist. Neck is supple. There is no elevated jugular venous pressure.] Right neck incision site clean and dry, no significant swelling or redness HEART EXAMINATION: Heart S1, S2 normal. No murmur or gallop heard. CHEST EXAMINATION: Lungs are clear to auscultation and precussion. No chest wall tenderness is noted on palpation or with deep breathing. ABDOMEN: Soft, nontender. Bowel sounds are heard. No organomegaly noted. EXTREMITIES: 2+ peripheral pulses with no evidence of peripheral edema and no calf tenderness noted. NEUROLOGIC patient is awake, alert and oriented 3 . . Results 01/22/20 07:05 01/22/20 07:05 Cardiac Enzymes 01/21/20 01/21/20 01/21/20 Range/Units 17:16 17:16 20:40 AST 35 (17-59) U/L Troponin I <0.012 <0.012 (0.000-0.034) ng/mL 01/21/20 01/22/20 Range/Units 23:42 07:05 AST 36 (17-59) U/L Troponin I <0.012 (0.000-0.034) ng/mL Coagulation 01/21/20 Range/Units 17:16 PT 9.9 (9.0-12.0) sec APTT 22.1 (22.0-30.0) sec CBC 01/21/20 01/22/20 Range/Units 17:16 07:05 WBC 9.1 8.3 (3.8-10.6) k/uL RBC 4.64 4.42 (4.30-5.90) m/uL Hgb 14.3 13.9 (13.0-17.5) gm/dL Hct 44.8 42.0 (39.0-53.0) % Plt Count 218 180 (150-450) k/uL Comprehensive Metabolic Panel 01/21/20 01/22/20 Range/Units 17:16 07:05 Sodium 139 140 (137-145) mmol/L Potassium 4.6 4.4 (3.5-5.1) mmol/L Chloride 106 108 H (98-107) mmol/L Carbon Dioxide 16 L 29 (22-30) mmol/L BUN 17 20 (9-20) mg/dL Creatinine 1.42 H 1.21 (0.66-1.25) mg/dL Glucose 159 H 113 H (74-99) mg/dL Calcium 9.3 8.9 (8.4-10.2) mg/dL AST 35 36 (17-59) U/L ALT 37 37 (4-49) U/L Alkaline Phosphatase 68 69 (38-126) U/L Total Protein 6.6 6.2 L (6.3-8.2) g/dL Albumin 4.1 3.7 (3.5-5.0) g/dL Current Medications Generic Name Dose Route Start Last Admin Trade Name Freq PRN Reason Stop Dose Admin Amlodipine Besylate 5 mg 01/22/20 09:00 01/22/20 08:39 Amlodipine 5 Mg Tab PO 5 mg DAILY HAM Administration Apixaban 5 mg 01/21/20 21:00 01/22/20 08:39 Apixaban 5 Mg Tab PO 5 mg BID HAM Administration Atorvastatin Calcium 40 mg 01/22/20 09:00 01/22/20 08:39 Atorvastatin 40 Mg Tab PO 40 mg DAILY HAM Administration Levothyroxine Sodium 50 mcg 01/22/20 06:30 01/22/20 06:21 Levothyroxine 50 Mcg Tab PO 50 mcg DAILY@0630 HAM Administration Naloxone HCl 0.2 mg 01/21/20 20:10 Naloxone 0.4 Mg/Ml 1 Ml Vial IV Q2M PRN Opioid Reversal Intake and Output 01/21/20 01/22/20 01/22/20 22:59 06:59 14:59 Intake Total 240 Output Total 500 Balance -500 240 Intake: Oral 240 Output: Urine 500 Other: Voiding Method Toilet Toilet # Voids 1 Weight 85.729 kg 01/22/20 07:05 01/22/20 07:05 EKG Interpretations (text) EKG shows a normal sinus rhythm with first-degree AV block Assessment and Plan Plan: Assessment and plan #1 syncope, rule out cardiac causes, syncope could also be secondary to recent right carotid endarterectomy #2 hypertension, accelerated #3 hyperlipidemia #4 nicotine dependence #5 history of DVT, diagnosed in August of this year, on Eliquis 5 twice a day #6 hypothyroidism #7 PAD, recent right carotid endarterectomy #8 first-degree AV block Plan We will obtain an echocardiogram with Doppler study. Patient had a recent Vale scan stress test in the office in December which was negative for any reversible ischemia. We will discontinue the atenolol because of the first-degree AV block, add Norvasc to the patient's medication regime. Check a TSH level, check orthostatic heart rate and blood pressure every shift. Continue to monitor for any significant tachycardia or bradycardia arrhythmias. DNP note has been reviewed, I agree with a documented findings and plan of care. Patient was seen and examined.
--- NOTE | 2020-01-22 11:09 | ECHOF ---
Referral Reason:syncope MEASUREMENTS -------- HEIGHT: 180.3 cm WEIGHT: 85.7 kg BP: IVSd: 1.3 cm (0.6 - 1.1) LVIDd: 4.6 cm (3.9 - 5.3) LVPWd: 1.4 cm (0.6 - 1.1) IVSs: 2.0 cm LVIDs: 2.3 cm LVPWs: 1.7 cm Ao Diam: 3.0 cm (2.0 - 3.7) AV Cusp: 1.9 cm (1.5 - 2.6) LA Diam: 3.7 cm (2.7 - 3.8) MV EXCURSION: 13.275 mm (> 18.000) MV EF SLOPE: 80 mm/s (70 - 150) EPSS: 1.0 cm MV E Saul: 0.66 m/s MV DecT: 228 ms MV A Saul: 0.74 m/s MV E/A Ratio: 0.88 RAP: 5.00 mmHg RVSP: 11.68 mmHg FINDINGS -------- This was a technically adequate study. The left ventricular size is normal. There is mild concentric left ventricular hypertrophy. Overa ll left ventricular systolic function is normal with, an EF between 55 - 60 %. The right ventricle is normal in size. The left atrial size is normal. The right atrial size is normal. Interatrial and interventricular septum intact. The aortic valve is trileaflet and appears structurally normal. The mitral valve is normal. There is trace mitral regurgitation. The tricuspid valve appears structurally normal. Trace tricuspid regurgitation present. Right eugenia tricular systolic pressure is normal at < 35 mmHg. There is no pulmonic regurgitation present. The aortic root size is normal. Normal inferior vena cava with normal inspiratory collapse consistent with estimated right atrial pre ssure of 5 mmHg. There is no pericardial effusion. CONCLUSIONS -------- 1. The left ventricular size is normal. 2. There is mild concentric left ventricular hypertrophy. 3. Overall left ventricular systolic function is normal with, an EF between 55 - 60 %. 4. There is trace mitral regurgitation. 5. Trace tricuspid regurgitation present. 6. The aortic root size is normal. 7. There is no pericardial effusion. SUPERVISOR FUSING ROOM: Teressa Harrison RDCS
--- NOTE | 2020-01-22 11:29 | P.CNNES ---
History of Present Illness Consult date: 01/22/20 Requesting physician: Eric Ortega Reason for Consult: Syncope History of Present Illness: Patient is a 70-year-old male came to the hospital yesterday at 5:02 PM by ambulance for a syncopal spell. Patient states he had undergone right carotid endarterectomy in [place] last Monday on 01/14/2020. Patient had an appointment with the vascular surgeon yesterday and he went to [place]. He was noted to have very high blood pressure 212 systolic. Patient was recommended to go to the ER. Patient arrived to the ER yesterday afternoon, where his blood pressure was noted to be running up and down. Patient was started on atenolol. Patient was recommended to buy a blood pressure apparatus to monitor blood pressure and was released from the ER. Patient and his went to the [facility] to buy the blood pressure apparatus. When he got out of the truck, he felt very lightheaded, disoriented and he was almost passing out, but his noticed and helped him sit in the truck. He then passed out and then woke up in the hospital. According to EMS flow sheet patient's vitals at the scene was blood pressure 122/63 pulse rate 81 respirations 16 and blood sugar 124. Patient was sitting in the passenger seat of the vehicle unresponsive. Patient would not follow commands and kept on repeating "I need to poop". No current was his activity was noted. Patient's vitals on arrival showed blood pressure 94/56, pulse rate 74 and temperature 97.6 Patient's orthostatics shows supine blood pressure 163/74 with pulse of 78 and temperature 97.6. Sitting up was 146/81 with pulse of 80 and on standing blood pressure dropped to 136/86 and pulse of 85. CT head negative, chest x-ray normal. CTA of head and neck showed moderate left proximal ICA stenosis. EKG shows sinus rhythm with first-degree AV block with fusion com plexes. Blood tests shows normal CBC, electrolytes, BUN is 17 creatinine 1.42, normal hepatic panel and troponin. TSH is normal. UA is negative. Patient previously has negative cardiolipin antibodies and MTHFR genotype. Patient denies any symptoms at this time. Patient has history of hypertension, denies diabetes. He has smoked about a pack per day off and on since age 18, cutback to less than half pack per day in the last 1 week. Patient denies any alcoholism. Review of Systems Denies headache problem with the vision hoarseness sore throat, dysphagia. Vishnu es chest pain shortness of breath wheezing or cough, abdominal pain nausea vomiting diarrhea, back pain. All other review of systems unremarkable. 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 History of Any Multi-Drug Resistant Organisms: None Reported Past Surgical History: Appendectomy, Tonsillectomy Additional Past Surgical History / Comment(s): Cataracts; Colonoscopy. Right sided Carotid Endoarterectomy Past Anesthesia/Blood Transfusion Reactions: No Reported Reaction Past Psychological History: No Psychological Hx Reported Smoking Status: Current every day smoker Past Alcohol Use History: None Reported Additional Past Alcohol Use History / Comment(s): has smoked for about 40 years 3/4 ppd Past Drug Use History: None Reported - Past Family History Mother Family Medical History: No Reported History Medications and Allergies Home Medications Medication Instructions Recorded Confirmed Type Atorvastatin [Lipitor] 40 mg PO DAILY 11/02/16 01/21/20 History Levothyroxine Sodium [Synthroid] 50 mcg PO DAILY 11/02/16 01/21/20 History atenoloL [Tenormin] 50 mg PO DAILY 11/02/16 01/21/20 History Apixaban [Eliquis] 5 mg PO BID 01/21/20 01/21/20 History Allergies Allergy/AdvReac Type Severity Reaction Status Date / Time No Known Allergies Allergy Verified 01/21/20 18:23 Physical Examination - Vital Signs Vital Signs: Vital Signs Temp Pulse Pulse Pulse Pulse Pulse Resp 01/22/20 08:12 97.9 F 68 77 70 20 01/22/20 02:34 18 01/22/20 02:32 97.9 F 68 18 01/21/20 22:57 80 85 78 01/21/20 21:20 01/21/20 21:06 97.9 F 74 16 01/21/20 19:10 70 18 01/21/20 18:08 67 18 01/21/20 17:30 16 01/21/20 17:25 01/21/20 17:04 97.6 F 74 18 BP BP BP BP BP Pulse Ox 01/22/20 08:12 156/76 147/73 170/68 93 L 01/22/20 02:34 01/22/20 02:32 135/78 94 L 01/21/20 22:57 146/81 136/86 163/74 01/21/20 21:20 174/77 01/21/20 21:06 180/84 97 01/21/20 19:10 151/80 97 01/21/20 18:08 130/64 92 L 01/21/20 17:30 94/54 01/21/20 17:25 94/54 01/21/20 17:04 94/56 Intake and Output 01/21/20 01/22/20 01/22/20 22:59 06:59 14:59 Intake Total 240 Output Total 500 Balance -500 240 Intake: Oral 240 Output: Urine 500 Other: Voiding Method Toilet Toilet # Voids 1 Weight 85.729 kg On examination patient is an elderly male, in no acute distress patient is alert and awake fully oriented speech and language functions are normal. Attention and concentration fund of knowledge is adequate. On cranial nerve examination pupils are round and reactive to light, visual [place]ork are full on confrontation, extraocular muscles are intact with no nystagmus. Face is symmetric, tongue protrudes the midline. Palatal elevation sensation normal. Hearing and shoulder shrug normal. Facial sensations normal. On muscle strength testing there is no pronator drift and the strength is normal in arms and legs distally and proximally. Deep tendon reflexes are 1+ in the upper limbs, 2+ in the lower limbs and plantars downgoing sensory touch is equal. No ataxia for [id number] testing tone and bulk of muscles and gait is normal. There is mild left bruit. S1 and S2 audible, abdomen soft nontender, chest is clear. No peripheral edema. Results - Laboratory Findings CBC and BMP: 01/22/20 07:05 01/22/20 07:05 Abnormal Lab Findings: Abnormal Labs 01/21/20 01/21/20 01/21/20 17:09 17:16 17:16 Chloride Carbon Dioxide 16 L Creatinine 1.42 H Glucose 159 H POC Glucose (mg/dL) 146 H Total Protein Urine Blood Small H Urine RBC 7 H Urine Mucus Rare H 01/22/20 07:05 Chloride 108 H Carbon Dioxide Creatinine Glucose 113 H POC Glucose (mg/dL) Total Protein 6.2 L Urine Blood Urine RBC Urine Mucus Assessment and Plan Assessment: * Syncopal spell, likely related to blood pressure dysregulation (running between high and low blood pressure), vasovagal/orthostatic versus cardiac related. * Status post right CEA on 01/14/2020. * Moderate left ICA stenosis left side. * Hypertension * Hyperlipidemia * Tobacco use. * History of DVT diagnosed in August 2019, on Eliquis. Plan: * Patient has been seen by cardiology, atenolol has been discontinued due to first-degree AV block and started on amlodipine. * 2-D echo showed normal left-ventricular size, mild concentric LVH, EF is 55- 60%. Trace MR. Aortic root size is normal. * Patient does have positive orthostatics, therefore needs hydration. Cardiology following. * Patient currently on Eliquis 5 mg twice a day. Resume aspirin 81 mg daily, because of significant atherosclerotic carotid artery disease with moderate stenosis on the left side. Patient is status post right CEA therefore also requires antiplatelet medication. Patient follows up with vascular surgeon Dr. Edwardo Carreon in [place]. * Continue Lipitor 40 mg for dyslipidemia * Strongly recommended complete tobacco cessation. * No other neurological workup indicated. Neurologically clear.
[2020-01-22] MEDS: ASPIRIN 81 MG PO SCH (15:10)
--- NOTE | 2020-01-22 20:08 | P.HPIM ---
History of Present Illness H&P Date: 01/22/20 Chief Complaint: Syncope History of presenting complaint: This is a 70-year-old patient of Dr. Hayes. Chronic stable medical conditions include hyperlipidemia, hypothyroid, stroke in 2007. No deficits, active smoker. Patient had a DVT last year, September for which she is on eliquis. One week ago patient underwent right carotid endarterectomy with Dr. Laguna in [place]. When he bent backwards follow-up he was noted to have a systolic blood pressure of 212. He was sent to the ER. In a for 2 hours stay in the ER he was given atenolol and told to follow-up with his PCP. Patient then went to the [facility] with his is getting out of the truck daily felt dizzy and then passed out. Temporarily. No chest pain or palpitation. EMS records show initial blood pressure 1 22 x 63 and a pulse of 81. Also is regular. Blood sugar was 124. Initially patient responded only to painful stimuli. Patient's pupils were dilated bilaterally. Patient then regained consciousness and could not follow, onset was somewhat confused initially. No seizure activity was reported. Review of systems: GEN.: Tired EYES: None HEENT: None NECK: [Incision of the right neck RESPIRATORY: None CARDIOVASCULAR: None GASTROINTESTINAL: None GENITOURINARY: None MUSCULOSKELETAL: Some joint pains LYMPHATICS: None HEMATOLOGICAL: None PSYCHIATRY: None NEUROLOGICAL: No focal symptoms Past medical history to include: CVA with full recovery, hyperlipidemia, hypothyroid, nicotine dependence, right Carotid endarterectomy one week ago Social history: , worked as an employment office clerk, retired, smoked for about 40 years less than a pack a day Family history: Reviewed, noncontributory to presentation Physical examination: VITAL SIGNS: 97.6, 74, 18, 94/56, 92% room air GENERAL: BMI 27.1, laying in bed, awake. EYES: Pupils equal. Conjunctiva normal. HEENT: External appearance of nose and ears normal, oral cavity grossly normal. NECK: JVD not raised; masses not palpable. Incision over the right carotid healing well HEART: First and second heart sounds are normal; no edema. LUNGS: Respiratory rate normal; decreased breath sounds. ABDOMEN: Soft, nontender, liver spleen not palpable, no masses palpable. PSYCH: Alert and oriented x3; mood and affect normal. NEUROLOGICAL: Cranial nerves grossly intact; no facial asymmetry, power and sensation grossly intact. LYMPHATICS: No lymph nodes palpable in the axilla and neck INVESTIGATIONS, reviewed in the clinical context: White count 9.1 hemoglobin 14.3 platelets 218 potassium 4.6 creatinine 1.4 to EKG tracing personally reviewed by me-sinus rhythm first degree AV block and nonspecific ST segment changes CT angiogram head and neck showing moderate left proximal ICA stenosis Chest x-ray film personally reviewed by me-borderline cardiomegaly Computed tomography scan of the brain-no acute findings Previous testing: Creatinine 1.10 earlier in the day Assessment: -This is a patient who presented with episode of passing out. Patient's blood pressure had been running high when it initially presented to ER. Took his atenolol. Late in the day he was given at that did not in the ER. By the time he had gone shopping the blood pressure further dropped and this likely resulted in patient passing out. Now that the patient blood pressure was in the 90s systolic when he arrived in the ER. Was also first degree AV block from the same. This morning patient blood pressure,. -Right carotid endarterectomy, 1 week ago -Hyperlipidemia -Hypothyroid -Chronic nicotine dependence patient cigarette smoker -Dehydration given the patient's creatinine was up, likely from decreased oral intake Plan: Patient is put on telemetry to rule out any arrhythmia. Troponins were negative.. Ordered. Patient be marginally 24 hours. Neurology in and cardiology was consulted. 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 Right sided Carotid Endoarterectomy Past Anesthesia/Blood Transfusion Reactions: No Reported Reaction Past Psychological History: No Psychological Hx Reported Smoking Status: Current every day smoker Past Alcohol Use History: None Reported Additional Past Alcohol Use History / Comment(s): has smoked for about 40 years 3/4 ppd Past Drug Use History: None Reported - Past Family History Mother Family Medical History: No Reported History Medications and Allergies Home Medications Medication Instructions Recorded Confirmed Type Atorvastatin [Lipitor] 40 mg PO DAILY 11/02/16 01/21/20 History Levothyroxine Sodium [Synthroid] 50 mcg PO DAILY 11/02/16 01/21/20 History atenoloL [Tenormin] 50 mg PO DAILY 11/02/16 01/21/20 History Apixaban [Eliquis] 5 mg PO BID 01/21/20 01/21/20 History Allergies Allergy/AdvReac Type Severity Reaction Status Date / Time No Known Allergies Allergy Verified 01/21/20 18:23 Physical Exam Vitals: Vital Signs Temp Pulse Pulse Pulse Pulse Pulse Resp 01/22/20 09:00 20 01/22/20 08:12 97.9 F 68 77 70 20 01/22/20 02:34 18 01/22/20 02:32 97.9 F 68 18 01/21/20 22:57 80 85 78 01/21/20 21:20 01/21/20 21:06 97.9 F 74 16 01/21/20 19:10 70 18 01/21/20 18:08 67 18 01/21/20 17:30 16 01/21/20 17:25 01/21/20 17:04 97.6 F 74 18 BP BP BP BP BP Pulse Ox 01/22/20 09:00 01/22/20 08:12 156/76 147/73 170/68 93 L 01/22/20 02:34 01/22/20 02:32 135/78 94 L 01/21/20 22:57 146/81 136/86 163/74 01/21/20 21:20 174/77 01/21/20 21:06 180/84 97 01/21/20 19:10 151/80 97 01/21/20 18:08 130/64 92 L 01/21/20 17:30 94/54 01/21/20 17:25 94/54 01/21/20 17:04 94/56 Intake and Output 01/21/20 01/22/20 01/22/20 22:59 06:59 14:59 Intake Total 240 Output Total 500 Balance -500 240 Intake: Oral 240 Output: Urine 500 Other: Voiding Method Toilet Toilet Toilet # Voids 1 Weight 85.729 kg Results CBC & Chem 7: 01/22/20 07:05 01/22/20 07:05 Labs: Abnormal Lab Results - Last 24 Hours (Table) 01/21/20 01/21/2020 Range/Units 17:09 17:16 17:16 Chloride (98-107) mmol/L Carbon Dioxide 16 L (22-30) mmol/L Creatinine 1.42 H (0.66-1.25) mg/dL Glucose 159 H (74-99) mg/dL POC Glucose (mg/dL) 146 H (75-99) mg/dL Total Protein (6.3-8.2) g/dL Urine Blood Small H (Negative) Urine RBC 7 H (0-5) /hpf Urine Mucus Rare H (None) /hpf 01/22/20 Range/Units 07:05 Chloride 108 H (98-107) mmol/L Carbon Dioxide (22-30) mmol/L Creatinine (0.66-1.25) mg/dL Glucose 113 H (74-99) mg/dL POC Glucose (mg/dL) (75-99) mg/dL Total Protein 6.2 L (6.3-8.2) g/dL Urine Blood (Negative) Urine RBC (0-5) /hpf Urine Mucus (None) /hpf Thrombosis Risk Factor Assmnt - Choose All That Apply Each Risk Factor Represents 2 Points: Age 61-74 years Thrombosis Risk Factor Assessment Total Risk Factor Score: 2 Thrombosis Risk Factor Assessment Level: Low Risk
[2020-01-23 03:37] VITALS: RESP 16
[2020-01-23] MEDS: LEVOTHYROXINE 50 MCG TAB PO SCH (06:16)
[2020-01-23 06:29] VITALS: PULSE 64
[2020-01-23] MEDS: ATORVASTATIN 40 MG TAB PO SCH (08:13)
[2020-01-23] MEDS: amLODIPine 5 MG TAB PO SCH (08:13)
[2020-01-23] MEDS: APIXABAN 5 MG TAB PO SCH (08:13)
[2020-01-23] MEDS: ASPIRIN 81 MG PO SCH (08:13)
[2020-01-23 08:19] VITALS: BP 128/72; TEMP 98.2
--- NOTE | 2020-01-23 11:28 | PN ---
PROGRESS NOTE A 70-year-old gentleman who is admitted to the hospital having had an episode of syncope. He had recent carotid surgery and his syncope could be vasovagal related to it. Since being admitted, he is doing well. Did not have significant tachy or bradyarrhythmia. He remains in sinus rhythm. He is currently on Norvasc 5 mg daily, Lipitor, aspirin, Eliquis, and Synthroid. The to Chemo that he was on admission is on hold as he had sinus bradycardia. He had an echocardiogram by me that showed normal LV systolic function and had a recent negative stress test. PHYSICAL EXAM: Comfortable at rest. Vital signs are stable. CHEST: Exam reveals good air entry bilaterally. HEART: Exam reveals first and second heart sounds. No gallop. Exam of extremities did not reveal any edema. Peripheral pulses are felt. ASSESSMENT: 1. Syncope, rule out cardiac causes. 2. Status post right carotid endarterectomy. 3. Bradycardia probably related to the beta blockers. PLAN: Myocardial infarction is ruled out. Patient is doing well. His syncope could be vasovagal related to recent surgery, could be due to bradycardia but so far his cardiac workup including recent stress test and echocardiogram have been unremarkable. Rhythm strips did not show any significant tachy or bradyarrhythmias. He is stable for discharge and follow up with me in the office on Monday. MMODL / IJN: [id number] /
--- NOTE | 2020-01-23 13:06 | P.PN ---
Subjective Progress Note Date: 01/23/20 Patient is feeling well. No further syncopal spells. No focal symptoms. Denies headache. Telemetry monitoring showing no arrhythmia. Objective - Vital Signs Vital signs: Vital Signs Temp 98.2 F 01/23/20 08:18 Pulse 64 01/23/20 08:56 Resp 16 01/23/20 08:56 BP 128/72 01/23/20 08:18 Pulse Ox 92 L 01/23/20 08:18 Intake & Output 01/22/20 01/23/20 01/23/20 18:59 06:59 18:59 Intake Total 480 240 Output Total 150 Balance 330 240 Intake: Oral 480 240 Output: Urine 150 Other: Voiding Method Toilet Toilet Toilet # Voids 2 1 # Bowel Movements 1 - Exam Mental status, cranial nerves and strength is normal. - Labs CBC & Chem 7: 01/22/20 07:05 01/22/20 07:05 Assessment and Plan Assessment: * Syncopal spell, likely related to blood pressure dysregulation (running between high and low blood pressure), vasovagal/orthostatic versus cardiac rel ated. * Status post right CEA on 01/14/2020. * Moderate left ICA stenosis left side. * Hypertension * Hyperlipidemia * Tobacco use. * History of DVT diagnosed in August 2019, on Eliquis. Plan: * Patient has been seen by cardiology, atenolol has been discontinued due to first-degree AV block and started on amlodipine. * 2-D echo showed normal left-ventricular size, mild concentric LVH, EF is 55- 60%. Trace MR. Aortic root size is normal. * Patient does have positive orthostatics, therefore needs hydration. Cardiology following. * Patient currently on Eliquis 5 mg twice a day. Resume aspirin 81 mg daily, because of significant atherosclerotic carotid artery disease with moderate stenosis on the left side. Patient is status post right CEA therefore also requires antiplatelet medication. Patient follows up with vascular surgeon Dr. Edawrdo Carreon in [place]. * Continue Lipitor 40 mg for dyslipidemia * Strongly recommended complete tobacco cessation. * Neurologically clear for discharge.
--- NOTE | 2020-01-23 23:24 | P.DS ---
Providers Date of admission: 01/21/20 20:10 Expected date of discharge: 01/23/20 Attending physician: Rigo Esquivel Consults: 01/21/20 20:10 Consult Physician Urgent Consulting Provider: Uri Krueger Consult Reason/Comments: syncope Do you want consulting provider notified?: Yes 01/21/20 20:11 Consult Physician Routine Consulting Provider: Maricruz Katz Consult Reason/Comments: syncope Do you want consulting provider notified?: Yes Primary care physician: Mauri Hayes Hospital Course: Chief Complaint: Syncope History of presenting complaint: This is a 70-year-old patient of Dr. Hayes. Chronic stable medical conditions include hyperlipidemia, hypothyroid, stroke in 2007. No deficits, active smoker. Patient had a DVT last year, September for which she is on eliquis. One week ago patient underwent right carotid endarterectomy with Dr. Laguna in [place]. When he bent backwards follow-up he was noted to have a systolic blood pressure of 212. He was sent to the ER. In a for 2 hours stay in the ER he was given atenolol and told to follow-up with his PCP. Patient then went to the [facility] with his is getting out of the truck daily felt dizzy and then passed out. Temporarily. No chest pain or palpitation. EMS records show initial blood pressure 1 22 x 63 and a pulse of 81. Also is regular. Blood sugar was 124. Initially patient responded only to painful stimuli. Patient's pupils were dilated bilaterally. Patient then regained consciousness and could not follow, onset was somewhat confused initially. No seizure activity was reported. Patient's symptoms were felt to be from the extra dose of beta-blockade.-Vasovagal. It was discontinued. Patient started on amlodipine. Today-patient feeling well. Blood pressure well controlled. Asymptomatic. Also seen by neurology. Cleared. Consultation: Dr. Delaney Akhtar from cardiology Dr. Beckham from neurology Physical examination: VITAL SIGNS: 98.2, 64, 16, 128/72, 92% room air GENERAL: Sitting up, comfortable EYES: Pupils equal. Conjunctiva normal. NECK: JVD not raised; masses not palpable. Incision over the right carotid healing well HEART: First and second heart sounds are normal; no edema. LUNGS: Respiratory rate normal; decreased breath sounds. ABDOMEN: Soft, nontender, liver spleen not palpable, no masses palpable. PSYCH: Alert and oriented x3; mood and affect normal. INVESTIGATIONS, reviewed in the clinical context: Potassium 4.4 creatinine 1.21 Previous testing White count 9.1 hemoglobin 14.3 platelets 218 potassium 4.6 creatinine 1.4 to EKG tracing personally reviewed by me-sinus rhythm first degree AV block and nonspecific ST segment changes CT angiogram head and neck showing moderate left proximal ICA stenosis Chest x-ray film personally reviewed by me-borderline cardiomegaly Computed tomography scan of the brain-no acute findings Previous testing: Creatinine 1.10 earlier in the day Assessment: -Likely vasovagal syncope from hypotension from beta raul having taken extra dose. -Right carotid endarterectomy, 1 week ago -Hyperlipidemia -Hypothyroid -Chronic nicotine dependence patient cigarette smoker -Dehydration given the patient's creatinine was up, likely from decreased oral intake Disposition: Home Patient Condition at Discharge: Stable Plan - Discharge Summary New Discharge Prescriptions: New Aspirin 81 mg PO DAILY chew amLODIPine [Norvasc] 5 mg PO DAILY #30 tab Continue Levothyroxine Sodium [Synthroid] 50 mcg PO DAILY Atorvastatin [Lipitor] 40 mg PO DAILY Apixaban [Eliquis] 5 mg PO BID Discontinued atenoloL [Tenormin] 50 mg PO DAILY Discharge Medication List Atorvastatin [Lipitor] 40 mg PO DAILY 11/02/16 [History] Levothyroxine Sodium [Synthroid] 50 mcg PO DAILY 11/02/16 [History] Apixaban [Eliquis] 5 mg PO BID 01/21/20 [History] Aspirin 81 mg PO DAILY chew 01/23/20 [Rx] amLODIPine [Norvasc] 5 mg PO DAILY #30 tab 01/23/20 [Rx] Follow up Appointment(s)/Referral(s): Mauri Hayes MD [Primary Care Provider] - 1-2 days Calos Akhtar MD [STAFF PHYSICIAN] - 01/29/20 8:45 am Patient Instructions/Handouts: How to Stop Smoking (DC), Syncope (DC), Hypertension in the Older Adult (DC) Discharge Disposition: HOME SELF-CARE
== END 2020-01-23 14:54 | disposition home or self-care (01) ==
LOC: EC 17:02 → 3NCARDOBS 20:10 → 1SOBS 01-22 16:20
PROVIDERS: ADMIT Hospitalist; ATTEND Hospitalist
DX: R55 Syncope and collapse (principal); E78.5 Hyperlipidemia, unspecified; I44.0 Atrioventricular block, first degree; I65.22 Occlusion and stenosis of left carotid artery; I10 Essential (primary) hypertension; I73.9 Peripheral vascular disease, unspecified; E03.9 Hypothyroidism, unspecified; E86.0 Dehydration; R00.1 Bradycardia, unspecified; Z79.899 Other long term (current) drug therapy; Z79.890 Hormone replacement therapy; Z79.01 Long term (current) use of anticoagulants; Z90.49 Acquired absence of other specified parts of digestive tract; F17.210 Nicotine dependence, cigarettes, uncomplicated; Z86.73 Personal history of transient ischemic attack (TIA), and cerebral infarction without residual deficits; Z86.718 Personal history of other venous thrombosis and embolism
CPT/HCPCS: 96360; 99285; 36415; 93005; 93306; 80053 ×2; 83735; 84443; 84484; 85025 ×2; 85610; 85730; 81001; 71046; 70496; 70450; 70498; G0378 ×4; Q9967

== ENCOUNTER → 2020-08-25 | Outpatient (CLI) | payer MEDICARE ==
--- NOTE | 2020-08-25 12:13 | CT ---
EXAMINATION TYPE: CT angio head neck DATE OF EXAM: 08/25/2020 COMPARISON: 01/21/2020 HISTORY: Occlusion and stenosis of bilateral carotid CT DLP: 1380 mGycm CONTRAST: Performed without and with IV Contrast, patient injected with 65 mL of Isovue 370. Combination Contrast CTA cervical carotids and [place] CTA cervical carotids with 3-D recons truction Contrast CTA of the cervical carotids was performed 3-D reconstruction imaging obtained at a separate workstation. Right carotid system: Mild plaque is seen of the right common carotid artery. There is mild plaque a lso noted at the carotid bulb and proximal ICA. No significant diameter reduction. ECA is patent. Right vertebral artery appears unremarkable. Left carotid system: Mild plaque is seen of the left common carotid artery. There is mild plaque als o noted at the carotid bulb and proximal ICA. 50% diameter reduction proximal left ICA. ECA is francois nt. Left vertebral artery appears unremarkable. IMPRESSION: 1. 50% diameter reduction proximal left ICA. No hemodynamically significant stenosis right ICA. CTA [place] with 3-D reconstruction Contrast CTA of the [place] was performed 3-D reconstruction imaging obtained at a separate workstation. Vertebrobasilar system as well as intracranial portions of the internal carotid arteries and their ma nicole tributaries are patent. I do not see evidence for sizable aneurysm or vascular malformation. Pl ease note MRI provides greater sensitivity and specificity. Visualized brain appears grossly unremar kable. IMPRESSION: 1. No siginificant abnormality.
== END | disposition home or self-care (01) ==
LOC: RADCTMAIN 09:47
PROVIDERS: ATTEND Surgery Vascular Surgery
DX: I65.23 Occlusion and stenosis of bilateral carotid arteries (principal)
CPT/HCPCS: 70496; 70498; Q9967

== ENCOUNTER → 2023-08-17 | Outpatient (CLI) | payer MEDICARE ==
--- NOTE | 2023-08-20 11:45 | PE ---
EXAMINATION TYPE: PET CT fusion skull to thigh DATE OF EXAM: 08/17/2023 CLINICAL INDICATION:Male, 73 years old with history of R91.1 SOLITARY PULMONARY NODULE; TECHNIQUE: Following the intravenous administration of 11.7 mCi of F-18 FDG, whole body images are performed from the skull base to the midthigh. Images are reviewed on the computer in the coronal, a xial, and sagittal planes. Reconstructed rotating images are created on independent workstation and reviewed on the computer. A non-contrast CT is performed in conjunction with the PET scan. Glucose level 104 mg/dL CT DLP: 6:15 mGycm, Automated exposure control for dose reduction was used. COMPARISON: CT 08/25/2020, PET/CT None, FINDINGS: Mediastinal SUV mean is 2.2. Hepatic parenchyma SUV mean is 2.9. SKULL BASE AND NECK: * Uptake near the right carotid bifurcation max SUV 6.7. * Suspected physiologic uptake within the tongue max SUV 13.8. CHEST, MEDIASTINUM, AND HILAR REGION: * Left upper lung pulmonary nodule measuring 16 x 10 mm Max SUV 9.9. * Mediastinal lymph nodes with increased metabolic activity including a prevascular space submillime ter excessively 6.2. * AP window measuring 9 mm and 9 mm Max SUV 7.7 and 6.2 respectively. * Left pulmonary hilum max SUV 4.7. Measurements difficult with IV contrast. * Left supraclavicular lymph node max SUV 3.9. ABDOMEN AND PELVIS: No suspicious radiotracer activity. MUSCULOSKELETAL STRUCTURES: * Focal uptake in left rib 7 Max SUV 5.8. * Right acetabulum focal uptake max SUV 6.1. OTHER CT: Left aphakia. Others close of the carotid bifurcations and the coronary arteries. Scattered colonic diverticula. Left no obstructing calculi up to 12 mm. Infrarenal abdominal aortic aneurysm m easuring up to 4.4 x 4.4 cm. Right common iliac artery fusiform dilation up to 3.4 cm IMPRESSION: * Left upper lung pulmonary nodule compatible with malignancy with metastatic disease to the mediast inum and possibly to the left seventh rib and right pelvis/acetabulum. Additional left supraclavicula r lymph node also compatible with malignancy. * Uptake near the right carotid bifurcation possibly secondary to prior surgeries given surgical cli ps. Infrarenal abdominal aortic aneurysm measuring 4.4 cm Vascular surgical consultation . * Right common iliac artery fusiform dilation up to 3.4 cm Vascular surgical consultation recommende d. * Left nonobstructing renal calculi.
== END | disposition home or self-care (01) ==
LOC: RADPETMAIN 09:21
PROVIDERS: ATTEND Internal Medicine Sleep Medicine
DX: R91.1 Solitary pulmonary nodule (principal); I71.43 Infrarenal abdominal aortic aneurysm, without rupture; N20.0 Calculus of kidney
CPT/HCPCS: 78815; A9552